=== PATIENT | female | born 1995 | race Caucasian/White ===

== ENCOUNTER 2017-05-06 02:22 | Emergency (ER) | payer OTHER ==
[~2017-05-06] VITALS: Ht 157.5 cm; Wt 71.8 kg
[2017-05-06 04:30] VITALS: BP 118/75
== END 2017-05-06 04:30 | disposition home or self-care (01) ==
LOC: ED 02:22
DX: R07.89 Other chest pain (principal); R05 Cough

== ENCOUNTER 2018-02-11 17:10 | Emergency (ER) | payer OTHER ==
[~2018-02-11] VITALS: Ht 157.5 cm; Wt 68.0 kg
[2018-02-11 17:21] VITALS: Ht 157.5 cm; Wt 68.0 kg
[2018-02-11 19:26] VITALS: BP 138/77
== END 2018-02-11 19:26 | disposition home or self-care (01) ==
LOC: ED 17:10
DX: R51 Headache (principal); M54.2 Cervicalgia; V43.62XA Car passenger injured in collision with other type car in traffic accident, initial encounter; Y93.I9 Activity, other involving external motion; Y92.89 Other specified places as the place of occurrence of the external cause; Y99.8 Other external cause status